=== PATIENT | female | born 1950 | race Caucasian/White ===

== ENCOUNTER 2022-07-29 09:02 | Emergency (ER) | payer OTHER, MEDICARE ==
[2022-07-29] MEDS ORDERED: Acetaminophen 500 MG TAB ONE (10:36)
[2022-07-29] MEDS ORDERED: Ibuprofen 200 MG TAB ONE (10:36)
== END 2022-07-29 10:47 | disposition home or self-care (01) ==
LOC: ERS 09:02
DX: S40.012A Contusion of left shoulder, initial encounter (principal); S16.1XXA Strain of muscle, fascia and tendon at neck level, initial encounter; V89.2XXA Person injured in unspecified motor-vehicle accident, traffic, initial encounter
CPT/HCPCS: 70450; 72125